=== PATIENT | male | born 1970 | race Caucasian/White ===

== ENCOUNTER 2017-08-30 22:59 | Inpatient (IN) | payer SELFPAY ==
[~2017-08-30] VITALS: Ht 167.6 cm; Wt 74.8 kg
[2017-08-30] MEDS ORDERED: SODIUM CHLORIDE 0.9% 1,000 ML IV ONE (23:20)
[2017-08-31 00:20] LABS: BASOPHILS % 1.1 % (0.0-2.0); EOSINOPHILS % 1.5 % (0.0-5.0); HEMATOCRIT. 43.4 % (42.0-52.0); LYMPHOCYTES % 10.8 % (20.0-50.0); MEAN CORPUSCULAR HEMOGLOBIN 34.1 pg (28.0-32.0); MEAN CORPUSCULAR VOLUME 98.3 fL (80.0-94.0); MEAN PLATELET VOLUME 8.7 fl (7.4-10.4); MONOCYTES % 10.4 % (2.0-8.0); NEUTROPHILS % 76.2 % (40.0-76.0); PLATELET 86 x1000/uL (130-400); RED BLOOD CELL COUNT 4.42 mill/uL (4.7-6.1)
[2017-08-31 00:36] LABS: CHLORIDE 100 mEq/L (98-107)
[2017-08-31 00:40] LABS: ETHANOL BLOOD < 10 mg/dL
[2017-08-31 01:15] LABS: CLARITY URINE CLEAR (CLEAR); COLOR URINE DARK YELLOW (YELLOW); KETONES URINE 2+ (NEGATIVE); LEUKOCYTE ESTERASE URINE TRACE (NEGATIVE); NITRITE URINE NEGATIVE (NEGATIVE); OCCULT BLOOD URINE NEGATIVE (NEGATIVE); PROTEIN URINE 2+ (NEGATIVE); SPECIFIC GRAVITY URINE 1.024 (1.005-1.030)
[2017-08-31 01:24] LABS: *AMPHETAMINES SCREEN URINE NEGATIVE (NEGATIVE); *BARBITURATES SCREEN URINE NEGATIVE (NEGATIVE); *BENZODIAZEPINES SCREEN URINE NEGATIVE (NEGATIVE); *COCAINE SCREEN URINE NEGATIVE (NEGATIVE); METHADONE URINE SCREEN NEGATIVE (NEGATIVE)
[2017-08-31 01:25] LABS: CANNABINOID URINE SCREEN NEGATIVE (NEGATIVE); OPIATES URINE SCREEN NEGATIVE (NEGATIVE); PHENCYCLIDINE URINE SCREEN NEGATIVE (NEGATIVE)
[2017-08-31 01:37] LABS: AMMONIA 75 uMol/L (<32)
[2017-08-31] MEDS ORDERED: ASPIRIN 325MG EC TABLET PO ONE (01:45)
[2017-08-31] MEDS ORDERED: ONDANSETRON HCL 4MG/2ML VIAL IV ONE (02:00)
[2017-08-31] MEDS ORDERED: LACTULOSE 20G/30ML UDC PO ONE (02:30)
[2017-08-31] MEDS ORDERED: DIPHENHYDRAMINE 50MG/ML VIAL IV PRN (05:00)
[2017-08-31] MEDS ORDERED: ACETAMINOPHEN 325MG TABLET PO PRN (05:00)
[2017-08-31] MEDS ORDERED: IPRATROPIUM/ALBUTEROL 0.5-3(2.5)MG/3ML NEB INH PRN (05:00)
[2017-08-31] MEDS ORDERED: ONDANSETRON HCL 4MG/2ML VIAL IV PRN (05:00)
[2017-08-31] MEDS ORDERED: LORAZEPAM 2MG/ML CPJ IV PRN ×2 (05:00→15:00)
[2017-08-31] MEDS ORDERED: CLONIDINE 0.1MG TABLET PO PRN (05:00)
[2017-08-31] MEDS ORDERED: DEXTROSE 50% WATER 50ML SYRINGE IV PRN (05:15)
[2017-08-31 13:52] LABS: HEMATOCRIT 41.8 % (42.0-52.0); HEMOGLOBIN 14.5 g/dL (14.0-18.0); MEAN CORPUSCULAR HEMOGLOBIN 33.8 pg (28.0-32.0); MEAN CORPUSCULAR VOLUME 97.4 fL (80.0-94.0); PLATELET 88 x1000/uL (130-400); RED BLOOD CELL COUNT 4.29 mill/uL (4.7-6.1); RED CELL DISTRIBUTION WIDTH 14.8 % (11.6-14.6)
[2017-08-31 13:58] LABS: INR 1.1; PARTIAL THROMBOPLASTIN TIME 25.1 sec (23.4-31.0); PROTHROMBIN TIME 11.6 sec (9.4-11.6)
[2017-08-31 14:24] LABS: HEPATITIS B SURFACE ANTIGEN NEGATIVE
[2017-08-31] MEDS ORDERED: STERILE WATER FOR INJECTION 10ML VIAL ONE (14:48)
[2017-08-31] MEDS ORDERED: SIMETHICONE 40 MG/0.6 ML 30ML ONE (14:48)
[2017-08-31 14:52] LABS: HEPATITIS B CORE AB IGM NEGATIVE
[2017-08-31 14:54] LABS: HEPATITIS A AB IGM NEGATIVE (NEGATIVE)
[2017-08-31 15:30] VITALS: BP 145/86
[2017-08-31] MEDS ORDERED: PANTOPRAZOLE SODIUM 40 MG/VIAL IV SCH (15:30)
[2017-08-31] MEDS ORDERED: MIDAZOLAM HCL 5 MG/5 ML VIAL IV PRN (16:26)
[2017-08-31] MEDS ORDERED: FENTANYL CITRATE/PF 50MCG/ML 2ML VIAL IV PRN (16:27)
[2017-08-31] MEDS ORDERED: MIDAZOLAM HCL 5 MG/5 ML VIAL ONE (16:28)
[2017-08-31] MEDS ORDERED: FENTANYL CITRATE/PF 50MCG/ML 2ML VIAL ONE (16:28)
[2017-08-31] MEDS ORDERED: OMEPRAZOLE 20MG CAPSULE EXTENDED RELEASE PO NR (16:48)
[2017-08-31] MEDS ORDERED: THIAMINE HCL 100 MG in SODIUM CHLORIDE 0.9% 49 ML IV NR (17:00)
[2017-08-31] MEDS ORDERED: MAGNESIUM 2 G PREMIX 50 ML IV NR (17:00)
[2017-08-31 20:00] VITALS: BP 134/80
[2017-08-31] MEDS: LACTULOSE 20G/30ML UDC PO SCH (21:49)
[2017-08-31] MEDS: BLOOD SUGAR DIAGNOSTIC STRIP TEST SCH (21:56)
[2017-08-31] MEDS: INSULIN LISPRO 100 UNITS/ML SUBCUT SCH (21:56)
[2017-08-31] MEDS: DEXT 5%/0.45% NACL KCL 40MEQ/L 1,000 ML IV SCH (23:17)
[2017-09-01 00:16] VITALS: BP 130/88
[2017-09-01 04:56] VITALS: BP 130/94
[2017-09-01] MEDS: DEXT 5%/0.45% NACL KCL 40MEQ/L 1,000 ML IV SCH (06:20)
[2017-09-01] MEDS: OMEPRAZOLE 20MG CAPSULE EXTENDED RELEASE PO SCH (06:43)
[2017-09-01] MEDS: LACTULOSE 20G/30ML UDC PO SCH ×3 (06:43→22:00)
[2017-09-01] MEDS: BLOOD SUGAR DIAGNOSTIC STRIP TEST SCH ×5 (06:46→22:45)
[2017-09-01 06:56] LABS: AMMONIA 59 uMol/L (<32)
[2017-09-01 07:02] LABS: BASOPHILS % 0.7 % (0.0-2.0); EOSINOPHILS % 2.3 % (0.0-5.0); HEMATOCRIT. 41.8 % (42.0-52.0); HEMOGLOBIN. 14.7 g/dL (14.0-18.0); LYMPHOCYTES % 19.7 % (20.0-50.0); MEAN CORPUSCULAR HEMOGLOBIN 34.4 pg (28.0-32.0); MEAN CORPUSCULAR VOLUME 97.7 fL (80.0-94.0); MEAN PLATELET VOLUME 9.3 fl (7.4-10.4); MONOCYTES % 11.6 % (2.0-8.0); NEUTROPHILS % 65.7 % (40.0-76.0); PLATELET 90 x1000/uL (130-400); RED BLOOD CELL COUNT 4.28 mill/uL (4.7-6.1); RED CELL DISTRIBUTION WIDTH 14.9 % (11.6-14.6)
[2017-09-01] MEDS: INSULIN LISPRO 100 UNITS/ML SUBCUT SCH ×4 (07:50→21:00)
[2017-09-01 08:01] LABS: CHLORIDE 104 mEq/L (98-107)
[2017-09-01 08:12] LABS: PHOSPHORUS 2.5 mg/dL (2.5-4.9)
[2017-09-01 08:44] VITALS: BP 140/91
[2017-09-01 12:04] VITALS: BP 119/78
[2017-09-01] MEDS ORDERED: CHLORDIAZEPOXIDE 25MG CAPSULE PO SCH (14:00)
[2017-09-01] MEDS ORDERED: HALOPERIDOL LACTATE 5MG/ML VIAL IM PRN (17:45)
[2017-09-01] MEDS ORDERED: DIPHENHYDRAMINE 50MG/ML VIAL IV PRN (17:45)
[2017-09-01] MEDS ORDERED: HALOPERIDOL LACTATE 5MG/ML VIAL IM NR ×2 (18:15→21:00)
[2017-09-01] MEDS ORDERED: LORAZEPAM 2MG/ML CPJ IM NR (18:15)
[2017-09-01] MEDS: DIPHENHYDRAMINE 50MG/ML VIAL IM NR ×2 (18:23→18:31)
[2017-09-01] MEDS ORDERED: LORAZEPAM 2MG/ML CPJ IV NR (21:00)
[2017-09-01] MEDS ORDERED: DIPHENHYDRAMINE 50MG/ML VIAL IM NR (21:00)
[2017-09-01] MEDS: CHLORDIAZEPOXIDE 25MG CAPSULE PO SCH (22:00)
[2017-09-02] VITALS (38 sets, daily range): BP systolic 82–192; BP diastolic 23–122
[2017-09-02] MEDS: LORAZEPAM 2MG/ML CPJ IV PRN ×6 (01:25→20:39)
[2017-09-02] MEDS: DEXT 5%/0.45% NACL KCL 40MEQ/L 1,000 ML IV SCH ×3 (02:23→18:41)
[2017-09-02] MEDS: CHLORDIAZEPOXIDE 25MG CAPSULE PO SCH ×4 (06:00→22:14)
[2017-09-02] MEDS: LACTULOSE 20G/30ML UDC PO SCH ×4 (06:00→22:14)
[2017-09-02] MEDS: BLOOD SUGAR DIAGNOSTIC STRIP TEST SCH ×4 (06:06→21:00)
[2017-09-02] MEDS: INSULIN LISPRO 100 UNITS/ML SUBCUT SCH ×4 (06:08→21:00)
[2017-09-02 06:21] LABS: CHLORIDE 106 mEq/L (98-107)
[2017-09-02 06:25] LABS: HEMOGLOBIN. 14.1 g/dL (14.0-18.0); MEAN CORPUSCULAR HEMOGLOBIN 34.5 pg (28.0-32.0); MEAN PLATELET VOLUME 9.8 fl (7.4-10.4); PLATELET 105 x1000/uL (130-400); RED BLOOD CELL COUNT 4.08 mill/uL (4.7-6.1); RED CELL DISTRIBUTION WIDTH 14.6 % (11.6-14.6)
[2017-09-02 06:26] LABS: AMMONIA 87 uMol/L (<32)
[2017-09-02] MEDS: OMEPRAZOLE 20MG CAPSULE EXTENDED RELEASE PO SCH ×2 (06:30→06:37)
[2017-09-02] MEDS: HALOPERIDOL LACTATE 5MG/ML VIAL IM PRN ×3 (08:04→20:39)
[2017-09-02] MEDS: DIPHENHYDRAMINE 50MG/ML VIAL IV PRN ×3 (09:06→20:39)
[2017-09-02] MEDS ORDERED: LACTULOSE 300 ML in WATER FOR INJECTION,STERILE 700 ML PR NR (10:00)
[2017-09-02] MEDS: PANTOPRAZOLE SODIUM 40 MG/VIAL IV SCH ×2 (10:25→21:48)
[2017-09-02 13:13] LABS: PLATELET ESTIMATE SLIGHTLY DECREASED
[2017-09-03] VITALS (38 sets, daily range): BP systolic 89–162; BP diastolic 60–105
[2017-09-03] MEDS: LORAZEPAM 2MG/ML CPJ IV PRN ×2 (00:55→07:27)
[2017-09-03 06:15] LABS: AMMONIA 36 uMol/L (<32)
[2017-09-03] MEDS: LACTULOSE 20G/30ML UDC PO SCH ×3 (06:15→22:54)
[2017-09-03 06:34] LABS: CHLORIDE 108 mEq/L (98-107)
[2017-09-03] MEDS: BLOOD SUGAR DIAGNOSTIC STRIP TEST SCH ×4 (06:37→21:40)
[2017-09-03] MEDS: INSULIN LISPRO 100 UNITS/ML SUBCUT SCH ×4 (06:37→21:00)
[2017-09-03 06:41] LABS: PHOSPHORUS 3.6 mg/dL (2.5-4.9)
[2017-09-03 06:49] LABS: HEMATOCRIT. 42.5 % (42.0-52.0); HEMOGLOBIN. 14.8 g/dL (14.0-18.0); MEAN CORPUSCULAR HEMOGLOBIN 34.5 pg (28.0-32.0); MEAN PLATELET VOLUME 9.7 fl (7.4-10.4); PLATELET 108 x1000/uL (130-400); RED BLOOD CELL COUNT 4.29 mill/uL (4.7-6.1); RED CELL DISTRIBUTION WIDTH 14.7 % (11.6-14.6)
[2017-09-03] MEDS: DEXT 5%/0.45% NACL KCL 40MEQ/L 1,000 ML IV SCH ×2 (07:27→21:47)
[2017-09-03] MEDS: CHLORDIAZEPOXIDE 25MG CAPSULE PO SCH ×3 (08:24→22:54)
[2017-09-03] MEDS: PANTOPRAZOLE SODIUM 40 MG/VIAL IV SCH ×2 (08:24→21:26)
[2017-09-03] MEDS: DIPHENHYDRAMINE 50MG/ML VIAL IV PRN (08:59)
[2017-09-03] MEDS: HALOPERIDOL LACTATE 5MG/ML VIAL IM PRN (09:36)
[2017-09-03 11:43] LABS: PLATELET ESTIMATE SLIGHTLY DECREASED
[2017-09-03] MEDS: AMOXICILLIN 500 MG CAPSULE PO SCH ×3 (15:00→21:26)
[2017-09-03] MEDS: CLARITHROMYCIN 500MG TABLET PO SCH ×2 (16:30→21:27)
[2017-09-04] VITALS (11 sets, daily range): BP systolic 105–132; BP diastolic 71–89
[2017-09-04] MEDS: LACTULOSE 20G/30ML UDC PO SCH ×3 (06:23→21:53)
[2017-09-04] MEDS: CHLORDIAZEPOXIDE 25MG CAPSULE PO SCH ×3 (06:23→21:53)
[2017-09-04] MEDS: BLOOD SUGAR DIAGNOSTIC STRIP TEST SCH ×4 (09:17→21:00)
[2017-09-04] MEDS: INSULIN LISPRO 100 UNITS/ML SUBCUT SCH ×4 (09:19→21:00)
[2017-09-04] MEDS: PANTOPRAZOLE SODIUM 40 MG/VIAL IV SCH ×2 (09:20→21:51)
[2017-09-04] MEDS: AMOXICILLIN 500 MG CAPSULE PO SCH ×2 (09:20→21:51)
[2017-09-04] MEDS: CLARITHROMYCIN 500MG TABLET PO SCH ×2 (09:20→21:52)
[2017-09-04] MEDS: DEXT 5%/0.45% NACL KCL 40MEQ/L 1,000 ML IV SCH (12:23)
[2017-09-04 17:14] LABS: AMMONIA 32 uMol/L (<32)
[2017-09-05] VITALS (11 sets, daily range): BP systolic 97–125; BP diastolic 60–75
[2017-09-05] MEDS: DEXT 5%/0.45% NACL KCL 40MEQ/L 1,000 ML IV SCH ×3 (04:45→20:02)
[2017-09-05] MEDS: LACTULOSE 20G/30ML UDC PO SCH ×3 (05:39→22:11)
[2017-09-05] MEDS: CHLORDIAZEPOXIDE 25MG CAPSULE PO SCH ×3 (05:39→22:11)
[2017-09-05] MEDS: BLOOD SUGAR DIAGNOSTIC STRIP TEST SCH ×4 (05:40→20:42)
[2017-09-05 05:43] LABS: AMMONIA 66 uMol/L (<32)
[2017-09-05] MEDS: INSULIN LISPRO 100 UNITS/ML SUBCUT SCH ×4 (07:37→21:00)
[2017-09-05] MEDS: AMOXICILLIN 500 MG CAPSULE PO SCH ×2 (08:14→20:33)
[2017-09-05] MEDS: CLARITHROMYCIN 500MG TABLET PO SCH ×2 (08:14→20:33)
[2017-09-05] MEDS: PANTOPRAZOLE SODIUM 40 MG/VIAL IV SCH ×2 (08:14→20:32)
[2017-09-06] VITALS (8 sets, daily range): BP systolic 87–123; BP diastolic 47–76
[2017-09-06] MEDS: LACTULOSE 20G/30ML UDC PO SCH ×3 (06:00→22:00)
[2017-09-06] MEDS: CHLORDIAZEPOXIDE 25MG CAPSULE PO SCH ×3 (06:01→22:00)
[2017-09-06 07:15] LABS: HEMATOCRIT. 42.1 % (42.0-52.0); HEMOGLOBIN. 14.5 g/dL (14.0-18.0); MEAN CORPUSCULAR HEMOGLOBIN 34.3 pg (28.0-32.0); MEAN CORPUSCULAR VOLUME 99.7 fL (80.0-94.0); MEAN PLATELET VOLUME 8.8 fl (7.4-10.4); PLATELET 168 x1000/uL (130-400); RED BLOOD CELL COUNT 4.22 mill/uL (4.7-6.1); RED CELL DISTRIBUTION WIDTH 14.6 % (11.6-14.6)
[2017-09-06] MEDS: BLOOD SUGAR DIAGNOSTIC STRIP TEST SCH ×4 (07:38→21:00)
[2017-09-06 07:57] LABS: CHLORIDE 110 mEq/L (98-107)
[2017-09-06] MEDS: INSULIN LISPRO 100 UNITS/ML SUBCUT SCH ×4 (08:00→21:00)
[2017-09-06] MEDS: AMOXICILLIN 500 MG CAPSULE PO SCH ×2 (09:40→20:52)
[2017-09-06] MEDS: PANTOPRAZOLE SODIUM 40 MG/VIAL IV SCH ×2 (09:40→20:52)
[2017-09-06] MEDS: CLARITHROMYCIN 500MG TABLET PO SCH ×2 (09:40→20:52)
[2017-09-06 10:56] LABS: PLATELET ESTIMATE NORMAL
[2017-09-06] MEDS: DEXT 5%/0.45% NACL KCL 40MEQ/L 1,000 ML IV SCH ×2 (17:43→23:41)
[2017-09-07 04:38] VITALS: BP 95/56
[2017-09-07] MEDS: LACTULOSE 20G/30ML UDC PO SCH ×2 (05:19→14:00)
[2017-09-07] MEDS: BLOOD SUGAR DIAGNOSTIC STRIP TEST SCH ×2 (06:27→13:11)
[2017-09-07] MEDS: INSULIN LISPRO 100 UNITS/ML SUBCUT SCH ×2 (07:50→12:50)
[2017-09-07 08:00] VITALS: BP 101/64
[2017-09-07] MEDS: CLARITHROMYCIN 500MG TABLET PO SCH (10:55)
[2017-09-07] MEDS: PANTOPRAZOLE SODIUM 40 MG/VIAL IV SCH (10:55)
[2017-09-07 12:00] VITALS: BP 110/66
[2017-09-07 13:27] VITALS: BP 133/67
[2017-09-07] MEDS: AMOXICILLIN 500 MG CAPSULE PO SCH (13:52)
== END 2017-09-07 14:50 | disposition home or self-care (01) | DRG 241 ==
LOC: ER 23:25 → 6WST 08-31 02:29 → ENRESERV 08-31 06:35 → CANRESERV 08-31 06:35 → ENRESERV 08-31 13:43 → 6WST 09-01 17:03 → MICUSO 09-02 01:10 → 5EST 09-03 23:53 → 6WST 09-06 23:29
PROVIDERS: ADMIT Internal Medicine; ATTEND Internal Medicine
PROC: 0DB68ZX Excision of Stomach, Via Natural or Artificial Opening Endoscopic, Diagnostic (ICD-10-PCS; principal; 2017-08-31 17:00)
PROC: 02HV33Z Insertion of Infusion Device into Superior Vena Cava, Percutaneous Approach (ICD-10-PCS; 2017-09-02)
PROC: B548ZZA Ultrasonography of Superior Vena Cava, Guidance (ICD-10-PCS; 2017-09-02)
DX: K29.71 Gastritis, unspecified, with bleeding (principal); G93.41 Metabolic encephalopathy; D61.818 Other pancytopenia; E87.8 Other disorders of electrolyte and fluid balance, not elsewhere classified; E83.42 Hypomagnesemia; B96.81 Helicobacter pylori [H. pylori] as the cause of diseases classified elsewhere; F10.239 Alcohol dependence with withdrawal, unspecified; E87.6 Hypokalemia; K70.30 Alcoholic cirrhosis of liver without ascites; Z83.3 Family history of diabetes mellitus; Z78.1 Physical restraint status
CPT/HCPCS: 36415; 36569; 70450; 71045; 76700; 76937; 80048; 80053; 80076; 80305; 81003; 82140; 82248; 82962; 83036; 83735; 84100; 84484; 85025; 85027; 85610; 85730; 86677; 86705; 86709; 86803; 87340; 88305; 88312; 88313; 92610; 93005; 93970; 96361; 96374; 99285; A4216; C1725; C1769; C9113; G0482; J1200; J1630; J2060; J2250; J2405; J3010; J3411; J3475; J7030; J7042